=== PATIENT | female | born 1960 | race Caucasian/White ===

== ENCOUNTER 2023-01-25 11:11 | Emergency (ER) | payer SELFPAY ==
[2023-01-25 11:15] VITALS: BP 140/77; PULSE 67; RESP 14; TEMP 36.2; O2SAT 99
[2023-01-25 11:44] LABS: Basophils Absolute Auto 0.03 K/mm3 (0.00-0.10); Basophils Percent Auto 0.7 % (0.0-1.0); Eosinophils Absolute Auto 0.05 K/mm3 (0.02-0.50); Eosinophils Percent Auto 1.1 % (1.0-6.0); Hematocrit 34.8 % (35.0-49.0); Hemoglobin 10.9 g/dL (12.0-15.0); Immature Granulocyte Absolute 0.02 K/mm3 (0.00-0.00); Immature Granulocyte Percent A 0.5 % (0.0-0.0); Immature Platelet Fraction Pct 2.8 % (1.0-7.0); Lymphocytes Absolute Auto 0.83 K/mm3 (1.10-4.50); Lymphocytes Percent Auto 18.8 % (18.0-42.0); Mean Corpuscular HGB Conc 31.3 g/dL (32.0-36.0); Mean Corpuscular Hemoglobin 26.5 pg (27.0-31.0); Mean Corpuscular Volume 84.7 fL (78.0-102.0); Mean Platelet Volume 10.4 fl (9.2-11.8); Monocytes Absolute Auto 0.29 K/mm3 (0.10-0.90); Monocytes Percent Auto 6.6 % (2.0-11.0); Neutrophils Absolute Auto 3.2 K/mm3 (1.7-7.2); Neutrophils Percent Auto 72.3 % (50.0-70.0); Platelet Count Result 87 K/mm3 (150-420); Red Blood Count 4.11 M/mm3 (4.20-5.40); Red Cell Distribution Width 18.4 % (11.6-14.4); White Blood Count 4.4 K/mm3 (4.8-10.8)
[2023-01-25 11:49] LABS: Appearance Urine Slightly Cloudy (Clear); Bilirubin Urine 1+ (Negative); Blood Urine 3+ (Negative); Color Urine Yellow (Yellow); Glucose Urine UA Negative (Negative); Ketones Urine Trace (Negative); Leukocyte Esterase Ur 1+ LEU/UL (Negative); Nitrate Urine Negative (Negative); Protein Urine 1+ (Negative); Specific Grav Ur 1.025 (1.010-1.020)
[2023-01-25 11:58] LABS: Alanine Aminotransferase 25 U/L (14-59); Albumin Level 2.8 g/dL (3.4-5.0); Alkaline Phosphatase 169 U/L (46-116); Anion Gap 5 mmol/L (8-16); Aspartate Amino Transferase 35 U/L (15-37); Bilirubin,Total 0.4 mg/dL (0.00-1.00); Blood Urea Nitrogen 13 mg/dL (7-18); Calcium 8.4 mg/dL (8.5-10.1); Carbon Dioxide 30 mmol/L (21-32); Chloride 103 mmol/L (98-108); Estimated CRCL calculation 67 ml/min; Estimated Glomerular Filt Rate > 60; Glucose 210 mg/dL (70-99); Osmolality Calculated 292 mOsm/kg (285-295); Potassium 3.6 mmol/L (3.5-5.1); Sodium 138 mmol/L (136-145); Total Protein 6.8 g/dL (6.4-8.2)
[2023-01-25 12:03] LABS: Lactic Acid Reflex 1.9 mmol/L (0.4-2.0)
[2023-01-25 12:07] LABS: Add Urine Microscopic? YES
[2023-01-25 12:08] LABS: Bacteria Urine 2+ /hpf; Calcium Oxalate Crystals Urine Present /hpf; Mucus Urine Moderate /lpf; Squamous Epithelial Cell Urine Few /hpf (Few)
[2023-01-25 12:18] LABS: Influenza A QL RT-PCR Negative (Negative); Influenza B QL RT-PCR Negative (Negative); RSV RNA, RT-PCR Negative (Negative); SARS-CoV-2 RNA PCR Negative (Negative)
--- NOTE | 2023-01-25 12:28 | ED.AMS ---
HPI - Altered Mental Status General Chief Complaint: Altered Mental Status Stated Complaint: Possible UTI/confused Time Seen by Provider: 01/25/23 11:16 Source: patient and family Mode of arrival: ambulatory Limitations: no limitations History of Present Illness HPI narrative: this is a 62-year-old female that presents with her with some confusion, the last couple of days with no fever chills does have some dysuria with no flank pain hematuria no chest pain no shortness breath. complaint: confusion Onset (ago): day(s) Timing confirmed by: family member Severity: mild Related Data Home Medications Medication Instructions Recorded Confirmed furosemide 20 mg tablet (Lasix) 20 mg PO BID PRN swelling 01/25/23 01/25/23 Allergies Allergy/AdvReac Type Severity Reaction Status Date / Time Penicillins Allergy Hives Verified 01/25/23 11:23 Review of Systems Review of Systems: All systems reviewed & are unremarkable except as noted in HPI and below PMFSH Past Medical History Medical History Patient denies medical problems Exam Const: General: healthy appearing and no acute distress Nutritional Appearance: well nourished Limitations: no limitations Eyes: Conjunctivae: conjunctivae normal Pupils: Equal, round and reactive pupils present Neck: Neck: normal visual inspection and no lymphadenopathy Chest: Chest palpation & inspection: normal inspection of the chest Resp: Effort & Inspection: normal respiratory effort Auscultation: clear to auscultation bilaterally Cardio: Rate: regular rate Rhythm: regular rhythm GI: GI Palp: Yes Soft to palpation Auscultation: normal bowel sounds : General: Yes Bladder palpation abnormal and Yes no CVA tenderness Urinary Catheter: Urinary Catheter: patent and draining and urine cloudy Back/Spine/Pelvis: Back: no CVA tenderness Skin: General skin exam: normal color Rashes: no rashes Neuro: General: patient oriented x3, moves all extremities and no meningeal signs Extrem: General: normal to inspection Psych: Mental Status: mental status grossly normal Course Course Emergency Course: patient COVID was negative labs reviewed and no significant abnormalities, UA performed shows urinary tract infection, a dose Macrobid p.o. was given prior to discharge. Vital Signs Vital signs: Vital Signs Temperature 36.2 C L 01/25/23 11:15 Pulse Rate 67 01/25/23 11:15 Respiratory Rate 14 01/25/23 11:15 Blood Pressure 140/77 01/25/23 11:15 Pulse Oximetry 99 01/25/23 11:15 Oxygen Delivery Room Air 01/25/23 11:15 Temperature 36.2 C L 01/25/23 11:15 Pulse Rate 67 01/25/23 11:15 Respiratory Rate 14 01/25/23 11:15 Blood Pressure 140/77 01/25/23 11:15 Pulse Oximetry 99 01/25/23 11:15 Oxygen Delivery Room Air 01/25/23 11:15 MDM - Altered Mental Status Lab Data 01/25/23 11:37 01/25/23 11:37 Labs: Lab Results 01/25/23 Range/Units 11:37 WBC 4.4 L (4.8-10.8) K/mm3 RBC 4.11 L (4.20-5.40) M/mm3 Hgb 10.9 L (12.0-15.0) g/dL Hct 34.8 L (35.0-49.0) % MCV 84.7 (78.0-102.0) fL MCH 26.5 L (27.0-31.0) pg MCHC 31.3 L (32.0-36.0) g/dL RDW 18.4 H (11.6-14.4) % Plt Count 87 L (150-420) K/mm3 MPV 10.4 (9.2-11.8) fl Immature Gran % (Auto) 0.5 H (0.0-0.0) % Neut % (Auto) 72.3 H (50.0-70.0) % Lymph % (Auto) 18.8 (18.0-42.0) % [place] % (Auto) 6.6 (2.0-11.0) % Eos % (Auto) 1.1 (1.0-6.0) % Baso % (Auto) 0.7 (0.0-1.0) % Lymph # (Auto) 0.83 L (1.10-4.50) K/mm3 [place] # (Auto) 0.29 (0.10-0.90) K/mm3 Eos # (Auto) 0.05 (0.02-0.50) K/mm3 Baso # (Auto) 0.03 (0.00-0.10) K/mm3 Abs Immat Gran (auto) 0.02 H (0.00-0.00) K/mm3 Absolute Neuts (auto) 3.2 (1.7-7.2) K/mm3 Absolute Nucleated RBC 0.00 (0.00-0.00) K/mm3 Nucleated RBC % 0.0 (0-0.0) % % Immature Plt Fraction 2.8 (1.0-7.0) % Sodium
[2023-01-25] MEDS: NITROFURANTOIN MONOHYD MACROCR 100 MG CAP PO (12:42)
[2023-01-25 12:44] VITALS: BP 121/65; PULSE 66; RESP 14; TEMP 36.8; O2SAT 100
--- NOTE | 2023-01-27 12:13 | PC.NURSE ---
Final Urine culture reports not indicative of urinary tract infection, no further treatment or action needed.
== END 2023-01-25 12:49 | disposition home or self-care (01) ==
PROVIDERS: Emergency Provider Emergency Medicine; PCP Nurse Practitioner Family
DX: N39.0 Urinary tract infection, site not specified (principal); Z79.899 Other long term (current) drug therapy; Z20.822 Contact with and (suspected) exposure to COVID-19
CPT/HCPCS: 36415; 80053; 81001; 83605; 85025; 85055; 87086; 87088; 87637; 99283; A9270

== ENCOUNTER 2023-01-26 22:49 | Emergency (ER) | payer SELFPAY ==
--- NOTE | ~2023-01-26 | XR_ITS ---
EXAMINATION: XR chest 2V 01/26/2023 23:21 INDICATION: Weakness and confusion. UTI. PROCEDURE: 2 view chest COMPARISON: No prior studies for comparison. FINDINGS: The lungs are clear. The cardiomediastinal silhouette is within normal limits. There are no pleural effusions. There is no pneumothorax suspected. IMPRESSION: 1: NO ACUTE CARDIOPULMONARY DISEASE. Reviewed, dictated and finalized at location A. TER INSPECTOR
--- NOTE | ~2023-01-26 | CT_ITS ---
EXAMINATION: CT brain wo con DATE: 01/26/2023 23:14 INDICATION: Altered mental status TECHNIQUE: Computed tomography (CT) of the head was performed without intravenous contrast. The mA wa s adjusted according to patient size. Iterative reconstruction technique was employed. Exam dose: 68 1.00 mGy-cm total exam DLP. COMPARISON: None FINDINGS: There are numerous bilateral intracranial mass lesions of variable size, largest measuring up to approximately 2.5 cm, situated in the left parasagittal area adjacent to the third and lateral ventricles, with associated approximately 10 mm rightward shift of the midline structures at this lev el. There is vasogenic edema surrounding multiple of the masses. There is effacement of the cortical sulci throughout the left cerebral hemisphere due to the combined mass effect of the intracranial mass is and associated surrounding edema, with more metastases on th e right side. The findings are consistent with extensive cerebral metastatic disease. Bilateral vertebral artery and carotid siphon internal carotid artery calcifications. Nonspecific diminished attenuation cerebral white matter, likely due to chronic small vessel ischemic changes. No subdural or epidural hematoma is evident. No intracranial hemorrhage. There is mild mucoperiosteal thickening of the left sphenoid sinus. Partial opacification of a minori ty of right mastoid air cells. Left mastoid air cells are unremarkable. The paranasal sinuses and mas toid air cells are otherwise unremarkable. No fracture or bone destruction of the cranial vault. IMPRESSION: Extensive cerebral metastatic disease with up to 10 mm rightward midline shift Reviewed, dictated and finalized at Location [facility]. Reviewed, dictated and finalized at location A. DRAWER FINISHER IMPRESSION: Extensive cerebral metastatic disease with up to 10 mm rightward m idline shift
[2023-01-26 22:48] VITALS: BP 171/76; PULSE 66; RESP 18; O2SAT 100
--- NOTE | 2023-01-26 22:53 | ECG_ITS ---
Measurements Intervals [place] Rate: 58 P: -25 GA: 136 QRS: -29 QRSD: 84 T: 0 QT: 417 QTc: 410 Interpretive Statements SINUS BRADYCARDIA POSSIBLE ANTERIOR MY POOR R-WAVE PROGRESSION NONSPECIFIC T-WAVE CHANGES NO PREVIOUS ECG AVAILABLE FOR COMPARISON Electronically Signed On 01-27-2023 9:03:26 ROOF FITTER by Yandy Morales M.D.
[2023-01-26 23:05] VITALS: PULSE 57; RESP 20; O2SAT 100
--- NOTE | 2023-01-26 23:05 | ED.WEAKNESS ---
HPI - Weakness General Chief complaint: Weakness <CRISTIAN Robledo Last Filed: 01/27/23 17:13> Stated complaint: WEAKNESS, AMS <Norma Mao PA-C - Last Filed: 01/27/23 17:13> Time Seen by Provider: 01/26/23 22:53 <Norma Mao PA-C - Last Filed: 01/27/23 17:13> Source: patient and family <CRISTIAN Robledo Last Filed: 01/27/23 17:13> Mode of arrival: EMS <CRISTIAN Robledo Last Filed: 01/27/23 17:13> Limitations: altered mental status <CRISTIAN Robledo Last Filed: 01/27/23 17:13> History of Present Illness HPI Narrative: This is a 62 year old female that presents to the ER for AMS. History obtained via family. Her daughter reports she started to become a little confused yesterday. Was diagnosed with a UTI at another facility. She was started on Macrobid. Her confusion worsened today which prompted them to bring her back in for evaluation. She was not able to even state her name today. Daughter reports she is normally fairly healthy, reports her only medication is PRN Lasix. <CRISTIAN Robledo Last Filed: 01/27/23 17:13> Related Data Home medications: Home Medications Medication Instructions Recorded Confirmed furosemide 20 mg tablet (Lasix) 20 mg PO BID PRN swelling 01/25/23 01/25/23 <CRISTIAN Robledo Last Filed: 01/27/23 17:13> Allergies/Adverse reactions: Allergies Allergy/AdvReac Type Severity Reaction Status Date / Time Penicillins Allergy Hives Verified 01/25/23 11:23 <CRISTIAN Robledo Last Filed: 01/27/23 17:13> Review of Systems Review of Systems: ROS unobtainable: Yes unobtainable due to mental status <CRISTIAN Robeldo Last Filed: 01/27/23 17:13> [facility] Past Medical History Medical History: Medical History Patient denies medical problems <Norma Mao PA-C - Last Filed: 01/27/23 17:13> Social History Social History: Social History (Updated 01/27/23 @ 00:29 by Norma Mao PA-C) Substance use: never <Norma Mao PA-C - Last Filed: 01/27/23 17:13> Exam Narrative: GENERAL: Well-appearing, well-nourished, and in no acute distress. HEAD: Normocephalic, atraumatic. EYES: PERRLA and EOMI. ENT: Nares clear, no rhinorrhea or epistaxis. Mucous membranes moist. Oropharynx without tonsillar hypertrophy exudate or other lesions. Bilateral TMs pearly valencia non-bulging NECK: Supple. No adenopathy or masses. CHEST: Clear to auscultation. No respiratory distress. No wheezes rales or rhonchi HEART: Regular rate and rhythm. No murmur heard. Normal peripheral pulses. ABDOMEN: Soft, nontender, nondistended, normal active bowel sounds. EXTREMITIES: Normal range of motion. No edema. Strength equal in bilateral upper and lower extremities (5/5) SKIN: Warm, dry, no rash. NEURO: No focal deficits. Alert and oriented x0. CN II-XII grossly intact PSYCH: Normal mood and affect <Norma Mao PA-C - Last Filed: 01/27/23 17:13> Course Course Emergency Course: Patient and family updated on workup. Prefer [place] system for higher level of care <Norma Mao PA-C - Last Filed: 01/27/23 17:13> GERMAN TUTOR/PA Physician Supervision For this patient encounter, I reviewed the GERMAN TUTOR or PA documentation, treatment plan, and medical decision making; and I had [id number] time with this patient. <Bennett Boyd MD - Last Filed: 02/01/23 07:08> Consultations Consultation #1: Dr. Aguirre accepts transfer to [place] as direct admit to neurosurgery service <Norma Mao PA-C - Last Filed: 01/27/23 17:13> Date: 01/27/23 <Norma Mao PA-C - Last Filed: 01/27/23 17:13> Vital Signs Vital signs: Vital Signs Pulse Rate 66 01/26/23 22:48 Respiratory Rate 18 01/26/23 22:48 Blood Pressure 171/76 H 01/26/23 22:48 Pulse Oximetry 100 01/26/23 22:48 Oxygen Delivery Room Air 01/26/23 22:48 Te
--- NOTE | 2023-01-26 23:17 | PC.NURSE ---
This RN assumed care of patient. This RN took patient report from HAN Avalos.
[2023-01-26 23:29] LABS: Alanine Aminotransferase 24 U/L (6-35); Albumin Level 3.4 g/dL (3.5-5.1); Alkaline Phosphatase 169 U/L (38-126); Anion Gap 8 mmol/L (8-16); Aspartate Amino Transferase 37 U/L (14-36); Bilirubin,Total 0.5 mg/dL (0.2-1.3); Blood Urea Nitrogen 16 mg/dL (7-17); Carbon Dioxide 23 mmol/L (22-30); Chloride 106 mmol/L (98-107); Estimated CRCL calculation 90 ml/min; Estimated Glomerular Filt Rate > 60; Glucose 143 mg/dL (65-110); Potassium 4.1 mmol/L (3.4-5.0); Sodium 137 mmol/L (137-145)
[2023-01-26 23:49] LABS: Basophils Percent Auto 0.6 % (0.2-1.2); Eosinophils Absolute Auto 0.1 K/mm3 (0-0.3); Eosinophils Percent Auto 1.1 % (0-4.4); Hematocrit 36.2 % (37.0-47.0); Hemoglobin 11.2 g/dL (12.0-15.0); Immature Granulocyte Absolute 0.01 K/mm3 (0.00-0.031); Immature Granulocyte Percent A 0.2 % (0-0.5); Immature Platelet Fraction Pct 3.5 % (0.9-11.2); Lymphocytes Absolute Auto 0.62 K/mm3 (0.9-3.2); Lymphocytes Percent Auto 13.3 % (18.3-44.2); Mean Corpuscular HGB Conc 30.9 g/dl (32-36); Mean Corpuscular Hemoglobin 25.9 pg (26-34); Mean Corpuscular Volume 83.6 fl (80-100); Mean Platelet Volume 10.2 fl (7.4-10.4); Monocytes Absolute Auto 0.4 K/mm3 (0.1-0.6); Monocytes Percent Auto 7.7 % (2.6-8.5); Neutrophils Absolute Auto 3.6 K/mm3 (1.3-6.7); Neutrophils Percent Auto 77.1 % (45.5-73.1); Platelet Count Result 83 k/mm3 (150-375); Red Blood Count 4.33 M/mm3 (4.2-5.4); Red Cell Distribution Width 18.5 % (11.5-14.5); White Blood Count 4.7 K/mm3 (4.5-10.0)
[2023-01-27] VITALS (29 sets, daily range): BP systolic 54–169; BP diastolic 46–85; PULSE 56–66; RESP 7–21; TEMP 36.6; O2SAT 97–100
[2023-01-27 00:14] LABS: Anisocytosis 1+ (NORMAL); Platelet Estimate Decreased (Adequate)
[2023-01-27 00:15] LABS: Schistocytes None Seen (NORMAL)
--- NOTE | 2023-01-27 00:56 | PC.NURSE ---
This RN spoke with Haydee at [facility] transfer center to confirm bed acceptance for a neuro floor through [facility].
--- NOTE | 2023-01-27 03:26 | PC.NURSE ---
Jazmine called this RN to ask if pt could be transferred via BLS , this RN spoke with EDP Provider Norma Mao who declined pt ability to be transffered BLS. Jazmine stated it would take 25-55 minutes to send a truck to transfer pt due to high call volume of emergency calls.
== END 2023-01-27 04:13 | disposition short-term general hospital (02) ==
PROVIDERS: Emergency Provider Physician Assistant; PCP Nurse Practitioner Family
DX: R22.0 Localized swelling, mass and lump, head (principal); D69.6 Thrombocytopenia, unspecified
CPT/HCPCS: 36415; 70450; 71046; 80053; 85025; 85055; 93005; 96374; 99285; J1100